=== PATIENT | female | born 1980 | race African-American/Black ===

== ENCOUNTER 2019-03-17 11:05 | Emergency (ER) | payer SELFPAY ==
[~2019-03-17] VITALS: Ht 157.5 cm; Wt 152.4 kg
[2019-03-17 11:08] VITALS: Ht 157.5 cm; Wt 152.4 kg
[2019-03-17 14:00] VITALS: BP 152/73
== END 2019-03-17 14:00 | disposition home or self-care (01) ==
LOC: ED 11:05 → EDSEX 11:05 → ED 14:00
DX: M67.442 Ganglion, left hand (principal)

== ENCOUNTER 2020-03-29 16:30 | Emergency (ER) | payer OTHER, SELFPAY ==
[~2020-03-29] VITALS: Ht 157.5 cm; Wt 149.7 kg
[2020-03-29 16:33] VITALS: Ht 157.5 cm; Wt 149.7 kg
[2020-03-29 18:31] LABS: BASOPHIL % 0.7 % (0-2); PLATELET COUNT 228 x10^3mcL (130-400)
[2020-03-29 18:43] LABS: CALCIUM 8.6 mg/dL (8.5-10.1); CHLORIDE SERUM 99 mmol/L (98-107); CREATININE SERUM 1.2 mg/dL (0.6-1.0); GFR1 53 mL/min; GLUCOSE SERUM 105 mg/dL (74-106); POTASSIUM SERUM 4.3 mmol/L (3.5-5.1); SODIUM SERUM 134 mmol/L (136-145)
[2020-03-29 18:50] LABS: ALBUMIN 3.7 g/dL (3.4-5.0); ALKALINE PHOSPHATASE 72 U/L (46-116); ALT/SGPT 57 U/L (14-59); AST/SGOT 36 U/L (15-37); BILIRUBIN TOTAL 0.23 mg/dL (0.20-1.00); CHOLESTEROL 176 mg/dL (<200); TOTAL PROTEIN, SERUM 7.6 g/dL (6.4-8.2)
[2020-03-29 19:51] LABS: microscopic required? NO
[2020-03-29 20:24] LABS: UA SPECIFIC GRAVITY 1.025 (1.005-1.035); urine erythrocyte NEGATIVE (NEGATIVE)
[2020-03-29 22:10] VITALS: BP 131/79
== END 2020-03-29 21:05 | disposition home or self-care (01) ==
LOC: ED 16:30
PROVIDERS: Specialist
DX: U07.1 COVID-19 (principal); R42 Dizziness and giddiness
CPT/HCPCS: 82962; G0480; J7030; Q0092; U0003-CS